=== PATIENT | male | born 2000 | race African-American/Black ===

== ENCOUNTER 2025-09-06 14:45 | Emergency (ER) | payer SELFPAY ==
[~2025-09-06] VITALS: Ht 200.7 cm; Wt 120.0 kg
[2025-09-06 15:16] VITALS: O2SAT 100
[2025-09-06] MEDS ORDERED: TETANUS, DIPHTHERIA, PERTUSSIS VAC/PF 0.5ML (>10YR OLD) IM ONE (17:00)
[2025-09-06] MEDS ORDERED: IBUP-2030 MT (18:02)
[2025-09-06] MEDS ORDERED: BO1 TP (18:02)
[2025-09-06] MEDS: IBUPROFEN 600MG TABLET PO ONE (18:45)
[2025-09-06] MEDS: BACITRACIN ZINC OINT UDPKT TOP ONE (18:45)
[2025-09-06] MEDS: TETANUS, DIPHTHERIA, PERTUSSIS VAC/PF 0.5ML (>10YR OLD) IM ONE (18:46)
[2025-09-06 18:57] VITALS: BP 125/70; PULSE 71; RESP 20; TEMP 36.9; O2SAT 100
== END 2025-09-06 19:00 | disposition home or self-care (01) ==
LOC: ER 14:45
DX: S91.311A Laceration without foreign body, right foot, initial encounter (principal); S91.312A Laceration without foreign body, left foot, initial encounter; G56.21 Lesion of ulnar nerve, right upper limb; J45.909 Unspecified asthma, uncomplicated; W25.XXXA Contact with sharp glass, initial encounter; Y93.01 Activity, walking, marching and hiking; Y92.89 Other specified places as the place of occurrence of the external cause; Y99.8 Other external cause status
CPT/HCPCS: 73620; 90715; 90471; 99283; Z7610; A6449